=== PATIENT | female | born 1965 | race Caucasian/White ===

== ENCOUNTER 2018-03-21 13:16 | Emergency (ER) | payer OTHER | END 2018-03-21 13:33 | disposition home or self-care (01) | LOC: E/R 13:16 | DX: L73.9 Follicular disorder, unspecified (principal); Z85.3 Personal history of malignant neoplasm of breast | CPT/HCPCS: 99284 ==

== ENCOUNTER 2018-07-07 21:09 | Emergency (ER) | payer OTHER ==
[2018-07-08] MEDS: ONDANSETRON (ODT) 4 MG TAB ODT (00:56)
[2018-07-08] MEDS: HYDROCODONE/APAP (5/325) TAB PO (00:56)
== END 2018-07-08 02:18 | disposition home or self-care (01) ==
LOC: FTE 07-08 02:18
DX: R51 Headache (principal); Z85.3 Personal history of malignant neoplasm of breast
CPT/HCPCS: 70450; 81025; 99284-25

== ENCOUNTER 2019-03-26 14:44 | Emergency (ER) | payer OTHER | END 2019-03-26 16:04 | disposition home or self-care (01) | LOC: FTE 16:04 | DX: R05 Cough (principal); Z85.3 Personal history of malignant neoplasm of breast | CPT/HCPCS: 99283; Z7502 ==